=== PATIENT | female | born 1995 | race Caucasian/White ===

== ENCOUNTER 2024-09-22 17:29 | Emergency (ER) | payer MEDICAID ==
[~2024-09-22] VITALS: Ht 175.3 cm; Wt 86.2 kg
[2024-09-22 17:30] VITALS: O2SAT 100
[2024-09-22 18:33] LABS: BASOPHILS % 0.3 % (0.0-2.0); EOSINOPHILS % 0.4 % (0.0-5.0); HEMATOCRIT. 41.4 % (36.0-48.0); HEMOGLOBIN. 13.7 g/dL (12.0-16.0); LYMPHOCYTES % 23.8 % (20.0-50.0); MEAN CORPUSCULAR HEMOGLOBIN 29.9 pg (28.0-32.0); MEAN CORPUSCULAR HGB CONC 33.1 g/dL (31.0-37.0); MEAN CORPUSCULAR VOLUME 90.3 fL (81.0-99.0); MEAN PLATELET VOLUME 7.9 fl (7.4-10.4); MONOCYTES % 6.1 % (2.0-8.0); NEUTROPHILS % 69.4 % (40.0-76.0); PLATELET 185 x1000/uL (130-400); RED BLOOD CELL COUNT 4.58 mill/uL (4.2-5.4); RED CELL DISTRIBUTION WIDTH 12.9 % (11.6-14.6); WHITE BLOOD COUNT 7.1 x1000/uL (4.5-11.0)
[2024-09-22 18:38] LABS: CHLORIDE 104 mEq/L (98-107); SODIUM 139 mEq/L (136-145)
[2024-09-22 18:39] LABS: CALCIUM 9.2 mg/dL (8.7-10.4); CARBON DIOXIDE 27 mEq/L (21-32)
[2024-09-22 18:44] LABS: CREATININE 0.5 mg/dL (0.6-1.0); GLUCOSE 98 mg/dL (70-105); HCG SCREEN POSITIVE; UREA NITROGEN BLOOD 5 mg/dL (9-23)
[2024-09-22 18:53] VITALS: BP 116/70; PULSE 85; RESP 16; TEMP 36.6; O2SAT 100
[2024-09-22 19:01] LABS: CLARITY URINE TURBID (CLEAR); COLOR URINE DARK YELLOW (YELLOW); GLUCOSE URINE NEGATIVE (NEGATIVE); KETONES URINE 1+ (NEGATIVE); LEUKOCYTE ESTERASE URINE TRACE (NEGATIVE); NITRITE URINE NEGATIVE (NEGATIVE); OCCULT BLOOD URINE NEGATIVE (NEGATIVE); PH URINE 8.5 (4.5-8.0); PROTEIN URINE TRACE (NEGATIVE); SPECIFIC GRAVITY URINE 1.022 (1.005-1.030)
[2024-09-22] MEDS: ONDANSETRON 4MG ODT PO ONE (19:21)
[2024-09-22] MEDS: ACETAMINOPHEN 650MG/20.3ML UDC PO ONE (19:21)
[2024-09-22 19:37] LABS: BACTERIA URINE 3+; RBC URINE 0-2 /hpf (0-2); SQUAMOUS EPITHELIAL CELL URINE 1+ /lpf (RARE/1+)
[2024-09-22 19:38] LABS: AMORPHOUS SEDIMENT URINE 2+ /lpf
[2024-09-22] MEDS ORDERED: CEPH500C2 MT (21:54)
== END 2024-09-22 22:01 | disposition home or self-care (01) ==
LOC: ER 17:29
DX: O20.9 Hemorrhage in early pregnancy, unspecified (principal); O9A.211 Injury, poisoning and certain other consequences of external causes complicating pregnancy, first trimester; S00.83XA Contusion of other part of head, initial encounter; Z3A.11 11 weeks gestation of pregnancy; Z88.0 Allergy status to penicillin; Y04.0XXA Assault by unarmed brawl or fight, initial encounter; Y93.89 Activity, other specified; Y92.89 Other specified places as the place of occurrence of the external cause; Y99.8 Other external cause status
CPT/HCPCS: 99284; 76801; 80048; 81003; 84703; 84702; 85025; 86850; 86900; 86901; 36415; 76817; Q0162